=== PATIENT | female | born 1985 | race African-American/Black ===

== ENCOUNTER 2018-09-13 10:07 | Emergency (ER) | payer OTHER ==
[~2018-09-13] VITALS: Ht 162.6 cm; Wt 52.2 kg
[~2018-09-13 10:07] MED LIST: APAP500 PO; COLACE 100 MG100 MG PO; DERMOPLAST SPRA56 ML; HYDROCORTISONE30 G9 RE; IBUPROFEN 800800 M1 PO; IRON325 PO; IROSPAN 24/6 T1 EACH PO; K-DUR 20 MEQ T20 MEQ PO; LANOLIN56 GM; NOHOMEMEDICATIONS; NORCO 5-325 TA1 EACH PO; PRENATAL; PROCARDIA XL30 MG PO
[2018-09-13 11:31] LABS: ABSOLUTE NEUTROPHILS 4.9 thou/uL (1.4-8.2); BASOPHILS 0.5 % (0.0-2.0); EOSINOPHILS 0.9 % (0.0-3.0); LYMPHOCYTES 16.6 % (24.0-44.0); MCH 29.2 pg (26.0-34.0); MCHC 34.1 g/dL (28.0-37.0); MCV 85.7 fL (80.0-100.0); PLATELET COUNT 323 thou/uL (150-400); RBC 4.44 mil/uL (4.20-5.00); RDW 13.9 % (10.5-14.5); WBC 6.8 thou/uL (4.0-11.0)
[2018-09-13 11:40] LABS: CALCIUM 8.7 mg/dL (8.5-10.1); CREATININE 0.6 mg/dL (0.6-1.0); POTASSIUM 3.2 mmol/L (3.5-5.1)
[2018-09-13] MEDS ORDERED: NORCO 5-325 TA1 EACH PO (12:18)
[2018-09-13 12:24] VITALS: BP 112/64
== END 2018-09-13 12:24 | disposition home or self-care (01) ==
LOC: ER 10:07
PROVIDERS: Nurse Practitioner Family
DX: K62.5 Hemorrhage of anus and rectum (principal); F17.210 Nicotine dependence, cigarettes, uncomplicated